=== PATIENT | male | born 1975 | race American Indian/Alaskan Native ===

== ENCOUNTER 2016-08-14 15:26 | Inpatient (IN) | payer MEDICAID ==
[2016-08-14 16:23] LABS: Basophils % (Auto) 0.7 % (0.0-1.8); Eosinophils % (Auto) 1.3 % (0.0-4.3); Hematocrit 50.6 % (35.5-45.6); Hemoglobin 16.7 gm/dl (11.8-15.2); Mean Corpuscular HGB Conc 33 % (32-34); Mean Corpuscular Hemoglobin 27 pg (28-32); Mean Corpuscular Volume 80 fl (84-94); Platelet Count 236 K/mm3 (140-440); Red Cell Distribution Width 17.3 % (13.2-15.2); White Blood Count 10.7 K/mm3 (4.5-11.0)
[2016-08-14 16:25] LABS: BUN/Creatinine Ratio 13.57; Calcium 10.7 mg/dL (8.4-10.2); Chloride 84.3 mmol/L (98-107); Potassium 5.5 mmol/L (3.6-5.0)
[2016-08-14 17:21] LABS: Bacteria,Urine 1+ /HPF (Negative); Bilirubin,Urine NEG (Negative); Blood,Urine NEG (Negative); Ketones,Urine 80 mg/dL (Negative); Leukocyte Esterase,Urine NEG (Negative); Mucus,Urine FEW /HPF; Nitrite,Urine NEG (Negative); Protein,Urine <15 mg/dL mg/dL (Negative); Urobilinogen,Urine < 2.0 mg/dL (<2.0); WBC,Urine < 1.0 /HPF (0.0-6.0)
[2016-08-14] MEDS ORDERED: D50W (25GM) IV PRN (21:44)
[2016-08-14] MEDS ORDERED: NACL 0.9% 1000 ML 1,000 ML IV ONE ×2 (21:44→21:46)
--- NOTE | 2016-08-14 21:53 | Emergency Department Report ---
ED General Adult HPI - General Chief complaint: Hyperglycemia Stated complaint: NOT FEELING WELL Time Seen by Provider: 08/14/16 21:42 Source: patient Mode of arrival: Ambulatory Limitations: No Limitations - History of Present Illness Initial comments: 41-year-old male with a past medical history hypertension and diabetes presents to the hospital complaining of feeling weak and tired 1 week. Patient also has increased thirst, increased urination, blurred vision, and weight loss. Patient takes metformin 500 twice a day and this been mostly compliant but missed a dose here and there. Patient does not monitor his glucose at home because he lost his glucometer. Denies fever, cough, or dysuria. Patient is experiencing intermittent crampy abdominal pain with nausea. Denies vomiting or diarrhea. Patient had mandibular bilateral wisdom tooth extraction approximately 2 weeks ago. He was placed on penicillin dated 07/19/2016 24 tablets. Patient did not complete the antibiotics and presents with a lot of tablets left in the bottle. PMD: [facility] - Related Data Allergies Allergy/AdvReac Type Severity Reaction Status Date / Time No Known Allergies Allergy Verified 08/14/16 21:52 ED Review of Systems ROS: Stated complaint: NOT FEELING WELL Other details as noted in HPI Comment: All other systems reviewed and negative Other: Constitutional: No fevers chills Eyes: No eye pain visual changes ENT: No ear pain or throat pain Neck: Denies pain Respiratory: Denies cough wheezing shortness of breath Cardiovascular: Denies chest pain, palpitations, syncope Endocrine: as per hpi GI: as per hpi : Denies dysuria Musculoskeletal: Denies back pain Skin: Denies rash, lesions, erythema Neurologic: Denies headache, numbness, weakness Psychiatric: Denies suicidal ideation, hallucinations ED Past Medical Hx - Past Medical History Hx Hypertension: Yes Hx Diabetes: Yes - Surgical History Additional Surgical History: LEFT KNEE SURGERY - Social History Smoking Status: Current Every Day Smoker Substance Use Type: Alcohol, Marijuana ED Physical Exam - General Limitations: No Limitations - Other Other exam information: General: No limitations, patient is alert in no acute distress Head exam: Atraumatic, normocephalic Eyes exam: Normal appearance ENT: Dry mucous membranes, no gum swelling or abscess noted at area of recent surgery at the mandibular wisdom teeth site Neck exam: Normal inspection, full range of motion, no meningismus nontender Respiratory exam: Clear to auscultation bilateral, no wheezes, rales, crackles Cardiovascular: Normal rate and rhythm, normal heart sounds Abdomen: Soft, nondistended, and nontender, with normal bowel sounds, no rebound, or guarding Extremity: Full range of motion normal inspection no deformity Back: Normal Inspection, full range of motion, no tenderness Neurologic: Alert, oriented x3, cranial nerves intact, no motor or sensory deficit Psychiatric: normal affect, normal mood Skin: Warm, dry, intact ED Course Vital Signs 08/14/16 15:46 Temperature 98.1 F Pulse Rate 106 H Respiratory 20 Rate Blood Pressure 159/96 O2 Sat by Pulse 98 Oximetry - Reevaluation(s) Reevaluation #1: 08/14/16 21:57 Insulin bolus, 2 L normal saline bolus, DKA protocol initiated ED Medical Decision Making - Lab Data Result diagrams: 08/14/16 15:52 08/14/16 15:52 Lab Results 08/14/16 08/14/16 08/14/16 Range/Units 15:37 15:52 15:52 WBC 10.7 (4.5-11.0) K/mm3 RBC 6.30 H (3.65-5.03) M/mm3 Hgb 16.7 H (11.8-15.2) gm/dl Hct 50.6 H (35.5-45.6) % MCV 80 L (84-94) fl MCH 27 L (28-32) pg MCHC 33 (32-34) % RDW 17.3 H (13.2-15.2) % Plt Count 236 (140-440) K/mm3 Lymph % (Auto) 31.9 (13.4-35.0) % [place] % (Auto) 7.5 H (0.0-7.3) % Eos % (Auto) 1.3 (0.0-4.3) % Baso % (Auto) 0.7 (0.0-1.8) % Lymph # 3.4 (1.2-5.4) K/mm3 [place] # 0.8 (0.0-0.8) K/mm3 Eos # 0.1 (0.0-0.4) K/mm3 Baso # 0.1 (0.0-0.1) K/mm3 Seg Neutrophils % 58.6 (40.0-70.0) % Seg Neutrophils # 6.3 (1.8-7.7) K/mm3 VBG pH (7.320-7.420) Sodium 128 L (137-145) mmol/L Potassium 5.5 H (3.6-5.0) mmol/L Chloride 84.3 L (98-107) mmol/L Carbon Dioxide 16 L (22-30) mmol/L Anion Gap 33 mmol/L BUN 19 (9-20) mg/dL Creatinine 1.4 (0.8-1.5) mg/dL Estimated GFR 56 ml/min BUN/Creatinine Ratio 13.57 % Glucose 567 H* (75-100) mg/dL POC Glucose 418 H (70-105) Calcium 10.7 H (8.4-10.2) mg/dL Urine Color (Yellow) Urine Turbidity (Clear) Urine pH (5.0-7.0) Ur Specific [place] (1.003-1.030) Urine Protein (Negative) mg/dL Urine Glucose (UA) (Negative) mg/dL Urine Ketones (Negative) mg/dL Urine Blood (Negative) Urine Nitrite (Negative) Urine Bilirubin (Negative) Urine Urobilinogen (<2.0) mg/dL Ur Leukocyte Esterase (Negative) Urine WBC (Auto) (0.0-6.0) /HPF Urine RBC (Auto) (0.0-6.0) /HPF U Epithel Cells (Auto) (0-13.0) /HPF Urine Bacteria (Auto) (Negative) /HPF Urine Mucus /HPF 08/14/16 08/14/16 Range/Units 15:52 16:15 WBC (4.5-11.0) K/mm3 RBC (3.65-5.03) M/mm3 Hgb (11.8-15.2) gm/dl Hct (35.5-45.6) % MCV (84-94) fl MCH (28-32) pg MCHC (32-34) % RDW (13.2-15.2) % Plt Count (140-440) K/mm3 Lymph % (Auto) (13.4-35.0) % [place] % (Auto) (0.0-7.3) % Eos % (Auto) (0.0-4.3) % Baso % (Auto) (0.0-1.8) % Lymph # (1.2-5.4) K/mm3 [place] # (0.0-0.8) K/mm3 Eos # (0.0-0.4) K/mm3 Baso # (0.0-0.1) K/mm3 Seg Neutrophils % (40.0-70.0) % Seg Neutrophils # (1.8-7.7) K/mm3 VBG pH 7.330 (7.320-7.420) Sodium (137-145) mmol/L Potassium (3.6-5.0) mmol/L Chloride (98-107) mmol/L Carbon Dioxide (22-30) mmol/L Anion Gap mmol/L BUN (9-20) mg/dL Creatinine (0.8-1.5) mg/dL Estimated GFR ml/min BUN/Creatinine Ratio % Glucose (75-100) mg/dL POC Glucose (70-105) Calcium (8.4-10.2) mg/dL Urine Color Straw (Yellow) Urine Turbidity Clear (Clear) Urine pH 5.0 (5.0-7.0) Ur Specific [place] 1.021 (1.003-1.030) Urine Protein <15 mg/dl (Negative) mg/dL Urine Glucose (UA) >=500 (Negative) mg/dL Urine Ketones 80 (Negative) mg/dL Urine Blood Neg (Negative) Urine Nitrite Neg (Negative) Urine Bilirubin Neg (Negative) Urine Urobilinogen < 2.0 (<2.0) mg/dL Ur Leukocyte Esterase Neg (Negative) Urine WBC (Auto) < 1.0 (0.0-6.0) /HPF Urine RBC (Auto) 4.0 (0.0-6.0) /HPF U Epithel Cells (Auto) < 1.0 (0-13.0) /HPF Urine Bacteria (Auto) 1+ (Negative) /HPF Urine Mucus Few /HPF - Medical Decision Making Patient requires admission to the hospital for DKA. Patient has ketones in the urine, anion gap with a low bicarbonate. Venous pH is normal. Hospitalist informed - Differential Diagnosis dka, infection, uti Critical Care Time: No Critical care attestation.: If time is entered above; I have spent that time in minutes in the direct care of this critically ill patient, excluding procedure time. ED Disposition Clinical Impression: DKA (diabetic ketoacidoses), Hyperkalemia, HTN (hypertension) Disposition: OP ADMITTED IP TO THIS HOSP Is pt being admited?: Yes Condition: Stable Time of Disposition: 21:53 (Dr saenz/hosp)
[2016-08-14 22:14] LABS: Magnesium 2.4 mg/dL (1.7-2.3); Phosphorous 5.4 mg/dL (2.5-4.5)
[2016-08-14] MEDS: NovoLIN R 100 UNITS in NACL 0.9% 99 ML IV SCH (22:38)
--- NOTE | 2016-08-14 23:01 | History and Physical Report ---
History of Present Illness Date of examination: 08/14/16 Chief complaint: Weak and tired History of present illness: Patient is a 41-year-old man with history of diabetes mellitus type 2, hypertension, dyslipidemia and tobacco dependency presents with progressively worse moderate constant generalized weakness, polydipsia, polyuria, polyphagia, weight loss, blurred vision and uncontrolled blood sugars over a couple weeks associated with generalized abdominal pain with nausea without vomiting. Patient was started on metformin recently. Patient had upper wisdom teeth removed about 2 weeks ago and was given antibiotics but did not complete. Primary care provider is at [facility]. Past medical history: As HPI Past surgical history: Left knee surgery Social history: Tobacco dependency, no alcohol or drugs Family history: Mother had diabetes and hypertension ROS: as HPI and all other ROS reviewed and negative. Medications and Allergies Allergies Allergy/AdvReac Type Severity Reaction Status Date / Time No Known Allergies Allergy Verified 08/14/16 21:52 Home Medications Medication Instructions Recorded Confirmed Last Taken Type Clarithromycin 500 mg PO Q12HR 08/14/16 08/14/16 Unknown History Lisinopril/Hydrochlorothiazide 20 mg PO QDAY 08/14/16 08/14/16 Unknown History Metformin HCl [Glucophage] 500 mg PO Q12HR 08/14/16 08/14/16 Unknown History Simvastatin 20 mg PO QDAY 08/14/16 08/14/16 Unknown History Active Meds: Active Medications Dextrose (D50w (25gm)) 0 ml IV PRN PRN PRN Reason: Hypoglycemia Heparin Sodium (Porcine) (Heparin) 5,000 unit SUB-Q Q12HR EARLINE Insulin Human Regular 100 (units/ Sodium Chloride) 100 mls @ 1 mls/hr IV TITR EARLINE; 1 UNITS/HR PRN Reason: Protocol Last Admin: 08/14/16 22:38 Dose: 7 units/hr, 7 mls/hr Potassium Chloride/Dextrose/Sod Cl (D5w/0.45% Nacl/Kcl 20 Meq) 20 meq in 1,000 mls @ 125 mls/hr IV DIRECT EARLINE Miscellaneous Medication (Lisinopril/Hydrochlorothiazide) 20 mg PO QDAY EARLINE Miscellaneous Medication (Simvastatin) 20 mg PO QDAY EARLINE Exam - Physical Exam Narrative exam: GEN: WDWN, NAD, AWAKE, ALERT, ORIENTATED 3 HEENT: NCAT, PERRL, EOMI, OP CLEAR NECK: SUPPLE, NO THYROMEGALY, NO JVD, NO LAD CVS: Regular tachycardia, NORMAL S1S2 LUNGS/CHEST: CTA B, NORMAL CHEST EXPANSION B, GOOD AIR ENTRY B ABD: SOFT NTND, GBS, NO REBOUND OR GUARDING EXT/SKIN: NO SIGNIFICANT EDEMA OR RASH, mucous membranes dry, capillary refill approximately 2 seconds MSK: FROM X 4 EXTREMITIES NEURO: CN 2-12 GROSSLY INTACT, NO FOCAL DEFICITS PSY: CALM - Constitutional Vitals: Temp Pulse Resp BP Pulse Ox 98.1 F 106 H 20 159/96 98 08/14/16 15:46 08/14/16 15:46 08/14/16 15:46 08/14/16 15:46 08/14/16 15:46 Results - Labs CBC & Chem 7: 08/14/16 15:52 08/14/16 15:52 Labs: Abnormal lab results 08/14/16 08/14/16 08/14/16 Range/Units 15:37 15:52 15:52 RBC 6.30 H (3.65-5.03) M/mm3 Hgb 16.7 H (11.8-15.2) gm/dl Hct 50.6 H (35.5-45.6) % MCV 80 L (84-94) fl MCH 27 L (28-32) pg RDW 17.3 H (13.2-15.2) % [place] % (Auto) 7.5 H (0.0-7.3) % Sodium 128 L (137-145) mmol/L Potassium 5.5 H (3.6-5.0) mmol/L Chloride 84.3 L (98-107) mmol/L Carbon Dioxide 16 L (22-30) mmol/L Glucose 567 H* (75-100) mg/dL POC Glucose 418 H (70-105) Calcium 10.7 H (8.4-10.2) mg/dL Phosphorus (2.5-4.5) mg/dL Magnesium (1.7-2.3) mg/dL 08/14/16 08/14/16 Range/Units 15:52 22:52 RBC (3.65-5.03) M/mm3 Hgb (11.8-15.2) gm/dl Hct (35.5-45.6) % MCV (84-94) fl MCH (28-32) pg RDW (13.2-15.2) % [place] % (Auto) (0.0-7.3) % Sodium (137-145) mmol/L Potassium (3.6-5.0) mmol/L Chloride (98-107) mmol/L Carbon Dioxide (22-30) mmol/L Glucose (75-100) mg/dL POC Glucose 383 H (70-105) Calcium (8.4-10.2) mg/dL Phosphorus 5.40 H (2.5-4.5) mg/dL Magnesium 2.40 H (1.7-2.3) mg/dL Assessment and Plan Patient is a 41-year-old man with history of diabetes mellitus type 2, hypertension, dyslipidemia and tobacco dependency presents with progressively worse moderate constant generalized weakness, polydipsia, polyuria, polyphagia, weight loss, blurred vision and uncontrolled blood sugars over a couple weeks associated with generalized abdominal pain with nausea without vomiting. Patient was started on metformin recently. Patient had upper wisdom teeth removed about 2 weeks ago and was given antibiotics but did not complete. Primary care provider is at [facility]. -DKA: DKA protocol admitted to ICU on insulin drip, consult trumpet player -Newly diagnosed diabetes mellitus placed on metformin, patient possibly was a type I at diagnosis or late stage type II -Hyponatremia related to uncontrolled hyperglycemia: treat the dm -Hyperkalemia and hypercalcemia, patient is dehydrated: Treat with IV fluids -Acute kidney injury suspected due to vasomotor nephropathy: Treated with IV fluids and monitor closely -Tobacco dependency: Counseling on stopping -DVT prophylaxis: Subcutaneous heparin Full code
[2016-08-14] MEDS ORDERED: REGLAN IV PRN (23:06)
[2016-08-14] MEDS ORDERED: TYLENOL PO PRN (23:06)
[2016-08-15 00:17] LABS: Magnesium 2.2 mg/dL (1.7-2.3); Phosphorous 4.6 mg/dL (2.5-4.5)
[2016-08-15] MEDS: D5W/0.45% NACL/KCL 20 MEQ 20 MEQ/1,000 ML BAG IV SCH ×3 (02:11→16:32)
[2016-08-15 04:46] LABS: Anion Gap 26 mmol/L; Blood Urea Nitrogen 15 mg/dL (9-20); Calcium 8.8 mg/dL (8.4-10.2); Carbon Dioxide 17 mmol/L (22-30); Chloride 94.9 mmol/L (98-107); Glucose 257 mg/dL (75-100); Sodium 134 mmol/L (137-145)
[2016-08-15 04:47] LABS: Anion Gap 26 mmol/L; Blood Urea Nitrogen 15 mg/dL (9-20); Calcium 8.8 mg/dL (8.4-10.2); Carbon Dioxide 17 mmol/L (22-30); Chloride 95.3 mmol/L (98-107); Glucose 256 mg/dL (75-100); Potassium 3.7 mmol/L (3.6-5.0); Sodium 135 mmol/L (137-145)
[2016-08-15 04:50] LABS: Anion Gap 28 mmol/L; BUN/Creatinine Ratio 11.53; Blood Urea Nitrogen 15 mg/dL (9-20); Calcium 8.9 mg/dL (8.4-10.2); Carbon Dioxide 16 mmol/L (22-30); Chloride 96.5 mmol/L (98-107); Glucose 261 mg/dL (75-100); Potassium 3.9 mmol/L (3.6-5.0); Sodium 137 mmol/L (137-145)
[2016-08-15 04:52] LABS: Anion Gap 27 mmol/L; BUN/Creatinine Ratio 11.53; Blood Urea Nitrogen 15 mg/dL (9-20); Calcium 8.8 mg/dL (8.4-10.2); Carbon Dioxide 17 mmol/L (22-30); Chloride 94.9 mmol/L (98-107); Glucose 254 mg/dL (75-100); Potassium 3.8 mmol/L (3.6-5.0); Sodium 135 mmol/L (137-145)
[2016-08-15 04:57] LABS: Potassium 3.7 mmol/L (3.6-5.0)
--- NOTE | 2016-08-15 08:10 | Progress Note ---
Assessment and Plan Assessment and plan: --Diabetic ketoacidosis Probably secondary to noncompliance, HbA1c 14.9 Continue IV insulin drip per protocol, vigorous IV hydration, closely monitor electrolytes and correct as needed Nothing by mouth status, we'll start clear liquids once anion gap is closed Diabetic education, nutrition consult --Hypertension Moderate control, continue current antihypertensive medications --Dyslipidemia; continue lipid-lowering medications --Obesity Counseling done patient advised dietary modification and exercise as tolerated and weight reduction When medically stable, verbalized understanding --Ongoing tobacco use; Smoking cessation counseling done, advised to quit tobacco use This and consequences and complications of ongoing tobacco use discussed with the patient Advised nicotine patch, -- DVT prophylaxis with heparin There closely monitor the patient and adjust the management as needed Patient's condition treatment plan discussed in detail with the patient as well as his nurse Critical care time 32 minutes History Interval history: Patient seen and evaluated in his room in ICU medical records reviewed Admitted with diabetic ketoacidosis on insulin drip Patient's anion gap remains high, also an acidosis Blood sugars are reasonable levels on insulin drip Alert awake oriented 3 not in acute distress, mild dehydration Patient requests food Hospitalist Physical - Constitutional Vitals: Temp Pulse Resp BP Pulse Ox 98.6 F 78 13 106/79 97 08/15/16 08:00 08/15/16 08:00 08/15/16 08:00 08/15/16 08:00 08/15/16 08:00 General appearance: Present: mild distress, well-nourished, obese - EENT Eyes: Present: PERRL, EOM intact - Neck Neck: Present: supple, normal ROM - Respiratory Respiratory effort: normal Respiratory: bilateral: diminished, negative: rales, rhonchi, wheezing - Cardiovascular Rhythm: regular Heart Sounds: Present: S1 & S2 - Extremities Extremities: no ischemia, pulses intact, pulses symmetrical Peripheral Pulses: within normal limits - Abdominal General gastrointestinal: soft, non-tender, non-distended, normal bowel sounds - Integumentary Integumentary: Present: clear, warm - Psychiatric Psychiatric: appropriate mood/affect, cooperative - Neurologic Neurologic: CNII-XII intact, moves all extremities Results - Labs CBC & Chem 7: 08/14/16 15:52 08/15/16 08:20 Labs: Laboratory Last Values WBC 10.7 K/mm3 (4.5-11.0) 08/14/16 15:52 RBC 6.30 M/mm3 (3.65-5.03) H 08/14/16 15:52 Hgb 16.7 gm/dl (11.8-15.2) H 08/14/16 15:52 Hct 50.6 % (35.5-45.6) H 08/14/16 15:52 MCV 80 fl (84-94) L 08/14/16 15:52 MCH 27 pg (28-32) L 08/14/16 15:52 MCHC 33 % (32-34) 08/14/16 15:52 RDW 17.3 % (13.2-15.2) H 08/14/16 15:52 Plt Count 236 K/mm3 (140-440) 08/14/16 15:52 Lymph % (Auto) 31.9 % (13.4-35.0) 08/14/16 15:52 [place] % (Auto) 7.5 % (0.0-7.3) H 08/14/16 15:52 Eos % (Auto) 1.3 % (0.0-4.3) 08/14/16 15:52 Baso % (Auto) 0.7 % (0.0-1.8) 08/14/16 15:52 Lymph # 3.4 K/mm3 (1.2-5.4) 08/14/16 15:52 [place] # 0.8 K/mm3 (0.0-0.8) 08/14/16 15:52 Eos # 0.1 K/mm3 (0.0-0.4) 08/14/16 15:52 Baso # 0.1 K/mm3 (0.0-0.1) 08/14/16 15:52 Seg Neutrophils % 58.6 % (40.0-70.0) 08/14/16 15:52 Seg Neutrophils # 6.3 K/mm3 (1.8-7.7) 08/14/16 15:52 VBG pH 7.330 (7.320-7.420) 08/14/16 15:52 Sodium 135 mmol/L (137-145) L 08/15/16 03:49 Potassium 3.8 mmol/L (3.6-5.0) 08/15/16 03:49 Chloride 94.9 mmol/L (98-107) L 08/15/16 03:49 Carbon Dioxide 17 mmol/L (22-30) L 08/15/16 03:49 Anion Gap 27 mmol/L 08/15/16 03:49 BUN 15 mg/dL (9-20) 08/15/16 03:49 Creatinine 1.3 mg/dL (0.8-1.5) 08/15/16 03:49 Estimated GFR > 60 ml/min 08/15/16 03:49 BUN/Creatinine Ratio 11.53 % 08/15/16 03:49 Glucose 254 mg/dL (75-100) H 08/15/16 03:49 POC Glucose 195 (70-105) H 08/15/16 06:20 Hemoglobin A1c 14.9 % (4-6) H 08/14/16 23:40 Calcium 8.8 mg/dL (8.4-10.2) 08/15/16 03:49 Phosphorus 4.60 mg/dL (2.5-4.5) H 08/14/16 23:40 Magnesium 1.90 mg/dL (1.7-2.3) 08/15/16 03:49 Urine Color Straw (Yellow) 08/14/16 16:15 Urine Turbidity Clear (Clear) 08/14/16 16:15 Urine pH 5.0 (5.0-7.0) 08/14/16 16:15 Ur Specific [place] 1.021 (1.003-1.030) 08/14/16 16:15 Urine Protein <15 mg/dl mg/dL (Negative) 08/14/16 16:15 Urine Glucose (UA) >=500 mg/dL (Negative) 08/14/16 16:15 Urine Ketones 80 mg/dL (Negative) 08/14/16 16:15 Urine Blood Neg (Negative) 08/14/16 16:15 Urine Nitrite Neg (Negative) 08/14/16 16:15 Urine Bilirubin Neg (Negative) 08/14/16 16:15 Urine Urobilinogen < 2.0 mg/dL (<2.0) 08/14/16 16:15 Ur Leukocyte Esterase Neg (Negative) 08/14/16 16:15 Urine WBC (Auto) < 1.0 /HPF (0.0-6.0) 08/14/16 16:15 Urine RBC (Auto) 4.0 /HPF (0.0-6.0) 08/14/16 16:15 U Epithel Cells (Auto) < 1.0 /HPF (0-13.0) 08/14/16 16:15 Urine Bacteria (Auto) 1+ /HPF (Negative) 08/14/16 16:15 Urine Mucus Few /HPF 08/14/16 16:15
[2016-08-15 08:58] LABS: Anion Gap 24 mmol/L; BUN/Creatinine Ratio 10.83; Blood Urea Nitrogen 13 mg/dL (9-20); Calcium 8.9 mg/dL (8.4-10.2); Carbon Dioxide 22 mmol/L (22-30); Chloride 99.5 mmol/L (98-107); Glucose 158 mg/dL (75-100); Potassium 4.2 mmol/L (3.6-5.0); Sodium 141 mmol/L (137-145)
[2016-08-15] MEDS: ZESTRIL PO SCH (09:44)
[2016-08-15] MEDS: HCTZ PO SCH (09:44)
[2016-08-15] MEDS: PROTONIX PO SCH (09:45)
[2016-08-15] MEDS ORDERED: NON-FORMULARY (Simvastatin 20 MG) PO SCH (10:00)
[2016-08-15] MEDS ORDERED: NON-FORMULARY (Lisinopril/Hydrochlorothiazide 20 MG) PO SCH (10:00)
--- NOTE | 2016-08-15 12:15 | Consultation ---
History of Present Illness - Reason for Consult Consult date: 08/15/16 DKA/Insulin Drip Requesting physician: NICHOLAS OLIVAREZ - History of Present Illness 41 y/o male admitted with DKA Past History Past Medical History: diabetes, hypertension, hyperlipidemia Past Surgical History: No surgical history Social history: no significant social history Family history: no significant family history Medications and Allergies Allergies Allergy/AdvReac Type Severity Reaction Status Date / Time No Known Allergies Allergy Verified 08/14/16 21:52 Home Medications Medication Instructions Recorded Confirmed Last Taken Type Clarithromycin 500 mg PO Q12HR 08/14/16 08/14/16 Unknown History Lisinopril/Hydrochlorothiazide 20 mg PO QDAY 08/14/16 08/14/16 Unknown History Metformin HCl [Glucophage] 500 mg PO Q12HR 08/14/16 08/14/16 Unknown History Simvastatin 20 mg PO QDAY 08/14/16 08/14/16 Unknown History Active Meds: Active Medications Acetaminophen (Tylenol) 650 mg PO Q6H PRN PRN Reason: Non Cardiac Pain or Temp>100.5 Dextrose (D50w (25gm)) 0 ml IV PRN PRN PRN Reason: Hypoglycemia Heparin Sodium (Porcine) (Heparin) 5,000 unit SUB-Q Q12HR EARLINE Hydrochlorothiazide (Hctz) 12.5 mg PO QDAY [facility] Last Admin: 08/15/16 09:44 Dose: 12.5 mg Insulin Human Regular 100 (units/ Sodium Chloride) 100 mls @ 1 mls/hr IV TITR EARLINE; 1 UNITS/HR PRN Reason: Protocol Last Titration: 08/15/16 10:01 Dose: 4 units/hr, 4 mls/hr Potassium Chloride/Dextrose/Sod Cl (D5w/0.45% Nacl/Kcl 20 Meq) 20 meq in 1,000 mls @ 125 mls/hr IV DIRECT EARLINE Last Admin: 08/15/16 09:45 Dose: 125 mls/hr Lisinopril (Zestril) 20 mg PO QDAY EARLINE Last Admin: 08/15/16 09:44 Dose: 20 mg Metoclopramide HCl (Reglan) 10 mg IV Q8H PRN PRN Reason: Nausea And Vomiting Pantoprazole Sodium (Protonix) 40 mg PO QDAY EARLINE Last Admin: 08/15/16 09:45 Dose: 40 mg Simvastatin (Zocor) 20 mg PO QHS EARLINE Review of Systems All systems: negative Exam - Constitutional Vitals: Temp Pulse Resp BP Pulse Ox 98.6 F 81 12 113/66 99 08/15/16 08:00 08/15/16 09:50 08/15/16 09:50 08/15/16 09:50 08/15/16 09:50 General appearance: Present: no acute distress, other (upset about NPO status) - EENT Eyes: Present: PERRL, EOM intact ENT: hearing intact, other (dry lips) - Neck Neck: Present: supple, normal ROM, other (large in circumference) - Respiratory Respiratory effort: normal Respiratory: bilateral: CTA - Cardiovascular Rhythm: regular Heart Sounds: Present: S1 & S2 - Extremities Extremities: no ischemia Results - Labs CBC & Chem 7: 08/14/16 15:52 08/15/16 08:20 Labs: Abnormal lab results 08/14/16 08/14/16 08/14/16 Range/Units 23:40 23:40 23:40 Sodium (137-145) mmol/L Chloride (98-107) mmol/L Carbon Dioxide (22-30) mmol/L Glucose (75-100) mg/dL POC Glucose 358 H (70-105) Hemoglobin A1c 14.9 H (4-6) % Phosphorus 4.60 H (2.5-4.5) mg/dL 08/15/16 08/15/16 08/15/16 Range/Units 00:40 01:09 02:05 Sodium (137-145) mmol/L Chloride (98-107) mmol/L Carbon Dioxide (22-30) mmol/L Glucose (75-100) mg/dL POC Glucose 293 H 313 H 230 H (70-105) Hemoglobin A1c (4-6) % Phosphorus (2.5-4.5) mg/dL 08/15/16 08/15/16 08/15/16 Range/Units 03:12 03:49 03:49 Sodium 134 L (137-145) mmol/L Chloride 94.9 L 96.5 L (98-107) mmol/L Carbon Dioxide 17 L 16 L (22-30) mmol/L Glucose 257 H 261 H (75-100) mg/dL POC Glucose 235 H (70-105) Hemoglobin A1c (4-6) % Phosphorus (2.5-4.5) mg/dL 08/15/16 08/15/16 08/15/16 Range/Units 03:49 03:49 03:58 Sodium 135 L 135 L (137-145) mmol/L Chloride 95.3 L 94.9 L (98-107) mmol/L Carbon Dioxide 17 L 17 L (22-30) mmol/L Glucose 256 H 254 H (75-100) mg/dL POC Glucose 235 H (70-105) Hemoglobin A1c (4-6) % Phosphorus (2.5-4.5) mg/dL 08/15/16 08/15/16 08/15/16 Range/Units 05:13 06:20 08:20 Sodium (137-145) mmol/L Chloride (98-107) mmol/L Carbon Dioxide (22-30) mmol/L Glucose 158 H (75-100) mg/dL POC Glucose 205 H 195 H (70-105) Hemoglobin A1c (4-6) % Phosphorus (2.5-4.5) mg/dL Assessment and Plan 41 y/o male with DKA 1. Patient remains on insulin drip, need to continue NPO status 2. Must stay on insulin drip until anion gap closes 3. Patient was not on insulin at home. Most likely will need insulin therapy at discharge 4. Once GAP closes, give long acting insulin and then feed patient. CCT 31 minutes.
[2016-08-15 13:56] LABS: Blood Urea Nitrogen 12 mg/dL (9-20); Calcium 8.6 mg/dL (8.4-10.2); Carbon Dioxide 18 mmol/L (22-30); Chloride 95.9 mmol/L (98-107); Glucose 215 mg/dL (75-100); Sodium 133 mmol/L (137-145)
[2016-08-15 14:12] LABS: Anion Gap 24 mmol/L; Potassium 4.5 mmol/L (3.6-5.0)
[2016-08-15] MEDS: NovoLIN R 100 UNITS in NACL 0.9% 99 ML IV SCH (15:00)
[2016-08-15] MEDS: HEPARIN SUB-Q SCH (21:52)
[2016-08-15] MEDS: ZOCOR PO SCH (21:54)
[2016-08-15 22:11] LABS: Anion Gap 21 mmol/L; Blood Urea Nitrogen 8 mg/dL (9-20); Calcium 9.1 mg/dL (8.4-10.2); Carbon Dioxide 22 mmol/L (22-30); Chloride 96.3 mmol/L (98-107); Glucose 180 mg/dL (75-100); Potassium 3.9 mmol/L (3.6-5.0); Sodium 135 mmol/L (137-145)
[2016-08-16] MEDS: D5W/0.45% NACL/KCL 20 MEQ 20 MEQ/1,000 ML BAG IV SCH
[2016-08-16] MEDS: NovoLIN R 100 UNITS in NACL 0.9% 99 ML IV SCH (04:59)
[2016-08-16 06:26] LABS: Anion Gap 17 mmol/L; BUN/Creatinine Ratio 7.77; Blood Urea Nitrogen 7 mg/dL (9-20); Calcium 8.8 mg/dL (8.4-10.2); Carbon Dioxide 22 mmol/L (22-30); Chloride 95.9 mmol/L (98-107); Glucose 137 mg/dL (75-100); Potassium 3.6 mmol/L (3.6-5.0); Sodium 131 mmol/L (137-145)
--- NOTE | 2016-08-16 07:57 | Progress Note ---
Assessment and Plan Assessment and plan: --Diabetic ketoacidosis Blood sugars are reasonable levels, anion gap closed, acidosis corrected Hemoglobin A1c 14.9, DC insulin drip Start 70/30 long-acting insulin, Accu-Chek before meals and at bedtime, sliding scale coverage Resume ADA diet, change IV fluids to normal saline Closely monitor blood sugars and if reasonable patient can be transferred out of ICU today Diabetic education prior to discharge --Hypertension Moderate control, continue current antihypertensive medications --Dyslipidemia; continue lipid-lowering medications --Obesity Counseling done patient advised dietary modification and exercise as tolerated and weight reduction When medically stable, verbalized understanding --Ongoing tobacco use; Smoking cessation counseling done, advised to quit tobacco use Continue nicotine patch -- DVT prophylaxis with heparin There closely monitor the patient and adjust the management as needed Patient's condition treatment plan discussed in detail with the patient as well as his nurse Transfer to medical floor Possible discharge in 1-2 days if stable Patient's condition treatment plan discussed in detail with the patient and his at the bedside and his nurse I also discussed with the trimming caser History Interval history: Patient seen and evaluated in IC this morning medical records reviewed Patient is admitted with diabetic ketoacidosis on insulin drip Sugars are reasonable control, anion gap closed, acidosis resolved Patient feels hungry and requests for food No nausea vomiting Alert awake oriented 3 not in acute distress Vital signs reviewed stable Hospitalist Physical - Constitutional Vitals: Temp Pulse Resp BP Pulse Ox 98.1 F 79 14 120/76 97 08/16/16 04:00 08/16/16 07:20 08/16/16 07:20 08/16/16 07:20 08/16/16 07:20 General appearance: Present: no acute distress, well-nourished, other (upset about NPO status) - EENT Eyes: Present: PERRL, EOM intact - Neck Neck: Present: supple, normal ROM - Respiratory Respiratory effort: normal Respiratory: bilateral: diminished, negative: rales, rhonchi, wheezing - Cardiovascular Rhythm: regular Heart Sounds: Present: S1 & S2 - Extremities Extremities: no ischemia, pulses intact, pulses symmetrical, normal temperature Peripheral Pulses: within normal limits - Abdominal General gastrointestinal: soft, non-tender, non-distended - Integumentary Integumentary: Present: clear, warm - Psychiatric Psychiatric: appropriate mood/affect, cooperative - Neurologic Neurologic: CNII-XII intact, moves all extremities Results - Labs CBC & Chem 7: 08/14/16 15:52 08/16/16 05:58 Labs: Laboratory Last Values WBC 10.7 K/mm3 (4.5-11.0) 08/14/16 15:52 RBC 6.30 M/mm3 (3.65-5.03) H 08/14/16 15:52 Hgb 16.7 gm/dl (11.8-15.2) H 08/14/16 15:52 Hct 50.6 % (35.5-45.6) H 08/14/16 15:52 MCV 80 fl (84-94) L 08/14/16 15:52 MCH 27 pg (28-32) L 08/14/16 15:52 MCHC 33 % (32-34) 08/14/16 15:52 RDW 17.3 % (13.2-15.2) H 08/14/16 15:52 Plt Count 236 K/mm3 (140-440) 08/14/16 15:52 Lymph % (Auto) 31.9 % (13.4-35.0) 08/14/16 15:52 [place] % (Auto) 7.5 % (0.0-7.3) H 08/14/16 15:52 Eos % (Auto) 1.3 % (0.0-4.3) 08/14/16 15:52 Baso % (Auto) 0.7 % (0.0-1.8) 08/14/16 15:52 Lymph # 3.4 K/mm3 (1.2-5.4) 08/14/16 15:52 [place] # 0.8 K/mm3 (0.0-0.8) 08/14/16 15:52 Eos # 0.1 K/mm3 (0.0-0.4) 08/14/16 15:52 Baso # 0.1 K/mm3 (0.0-0.1) 08/14/16 15:52 Seg Neutrophils % 58.6 % (40.0-70.0) 08/14/16 15:52 Seg Neutrophils # 6.3 K/mm3 (1.8-7.7) 08/14/16 15:52 VBG pH 7.330 (7.320-7.420) 08/14/16 15:52 Sodium 131 mmol/L (137-145) L 08/16/16 05:58 Potassium 3.6 mmol/L (3.6-5.0) 08/16/16 05:58 Chloride 95.9 mmol/L (98-107) L 08/16/16 05:58 Carbon Dioxide 22 mmol/L (22-30) 08/16/16 05:58 Anion Gap 17 mmol/L 08/16/16 05:58 BUN 7 mg/dL (9-20) L 08/16/16 05:58 Creatinine 0.9 mg/dL (0.8-1.5) 08/16/16 05:58 Estimated GFR > 60 ml/min 08/16/16 05:58 BUN/Creatinine Ratio 7.77 % 08/16/16 05:58 Glucose 137 mg/dL (75-100) H 08/16/16 05:58 POC Glucose 138 (70-105) H 08/16/16 06:06 Hemoglobin A1c 14.9 % (4-6) H 08/14/16 23:40 Calcium 8.8 mg/dL (8.4-10.2) 08/16/16 05:58 Phosphorus 4.60 mg/dL (2.5-4.5) H 08/14/16 23:40 Magnesium 1.90 mg/dL (1.7-2.3) 08/15/16 03:49 Urine Color Straw (Yellow) 08/14/16 16:15 Urine Turbidity Clear (Clear) 08/14/16 16:15 Urine pH 5.0 (5.0-7.0) 08/14/16 16:15 Ur Specific [place] 1.021 (1.003-1.030) 08/14/16 16:15 Urine Protein <15 mg/dl mg/dL (Negative) 08/14/16 16:15 Urine Glucose (UA) >=500 mg/dL (Negative) 08/14/16 16:15 Urine Ketones 80 mg/dL (Negative) 08/14/16 16:15 Urine Blood Neg (Negative) 08/14/16 16:15 Urine Nitrite Neg (Negative) 08/14/16 16:15 Urine Bilirubin Neg (Negative) 08/14/16 16:15 Urine Urobilinogen < 2.0 mg/dL (<2.0) 08/14/16 16:15 Ur Leukocyte Esterase Neg (Negative) 08/14/16 16:15 Urine WBC (Auto) < 1.0 /HPF (0.0-6.0) 08/14/16 16:15 Urine RBC (Auto) 4.0 /HPF (0.0-6.0) 08/14/16 16:15 U Epithel Cells (Auto) < 1.0 /HPF (0-13.0) 08/14/16 16:15 Urine Bacteria (Auto) 1+ /HPF (Negative) 08/14/16 16:15 Urine Mucus Few /HPF 08/14/16 16:15
[2016-08-16] MEDS: NACL 0.9% 1000 ML 1,000 ML IV SCH ×2 (09:00→21:08)
--- NOTE | 2016-08-16 09:32 | Progress Note ---
Assessment and Plan DKA Rec: Continue hydration monitor BS and Fahad salazar Move to long acting insulin of , ketones, AG remain normal Probably OK to transfer out of ICU, if he continues to improved during the day. Will monitor and sign off once transferred CCT 31 min Subjective Date of service: 08/16/16 Principal diagnosis: DKA Interval history: Feels fine.No vomiting or chest pain.Stating feedings Objective Vital Signs - 12hr 08/15/16 08/15/16 08/15/16 21:40 21:50 22:00 Temperature Pulse Rate 97 H 95 H 94 H Pulse Rate [ From Monitor] Respiratory 10 L 16 13 Rate Blood Pressure 151/129 151/129 144/102 O2 Sat by Pulse 97 96 95 Oximetry 08/15/16 08/15/16 08/15/16 22:10 22:20 22:30 Temperature Pulse Rate 93 H 90 87 Pulse Rate [ From Monitor] Respiratory 14 12 12 Rate Blood Pressure 144/102 144/102 144/102 O2 Sat by Pulse 95 98 98 Oximetry 08/15/16 08/15/16 08/15/16 22:40 22:50 23:00 Temperature Pulse Rate 88 83 91 H Pulse Rate [ From Monitor] Respiratory 13 11 L 9 L Rate Blood Pressure 144/102 146/90 163/103 O2 Sat by Pulse 98 98 99 Oximetry 08/15/16 08/15/16 08/15/16 23:10 23:20 23:30 Temperature Pulse Rate 85 88 94 H Pulse Rate [ From Monitor] Respiratory 12 11 L 17 Rate Blood Pressure 163/103 163/103 163/103 O2 Sat by Pulse 98 97 96 Oximetry 08/15/16 08/15/16 08/16/16 23:40 23:50 00:00 Temperature 98.1 F Pulse Rate 82 86 89 Pulse Rate [ From Monitor] Respiratory 10 L 13 10 L Rate Blood Pressure 163/103 163/96 155/96 O2 Sat by Pulse 96 97 99 Oximetry 08/16/16 08/16/16 08/16/16 00:10 00:20 00:30 Temperature Pulse Rate 92 H 89 86 Pulse Rate [ From Monitor] Respiratory 13 11 L 14 Rate Blood Pressure 155/96 155/96 155/96 O2 Sat by Pulse 97 97 96 Oximetry 08/16/16 08/16/16 08/16/16 00:40 00:50 01:00 Temperature Pulse Rate 100 H 86 84 Pulse Rate [ From Monitor] Respiratory 10 L 15 17 Rate Blood Pressure 155/96 155/96 131/82 O2 Sat by Pulse 98 97 96 Oximetry 08/16/16 08/16/16 08/16/16 01:10 01:20 01:30 Temperature Pulse Rate 83 87 82 Pulse Rate [ From Monitor] Respiratory 11 L 13 14 Rate Blood Pressure 131/82 131/82 131/82 O2 Sat by Pulse 98 98 97 Oximetry 08/16/16 08/16/16 08/16/16 01:40 01:50 02:00 Temperature Pulse Rate 86 87 82 Pulse Rate [ From Monitor] Respiratory 13 12 12 Rate Blood Pressure 131/82 131/82 123/65 O2 Sat by Pulse 98 97 100 Oximetry 08/16/16 08/16/16 08/16/16 02:10 02:20 02:30 Temperature Pulse Rate 88 91 H 92 H Pulse Rate [ From Monitor] Respiratory 12 12 13 Rate Blood Pressure 123/65 123/65 123/65 O2 Sat by Pulse 96 96 95 Oximetry 08/16/16 08/16/16 08/16/16 02:40 02:50 03:00 Temperature Pulse Rate 97 H 88 84 Pulse Rate [ From Monitor] Respiratory 13 13 8 L Rate Blood Pressure 123/65 123/65 107/68 O2 Sat by Pulse 97 95 97 Oximetry 08/16/16 08/16/16 08/16/16 03:10 03:20 03:30 Temperature Pulse Rate 86 88 88 Pulse Rate [ From Monitor] Respiratory 12 11 L 11 L Rate Blood Pressure 107/68 107/68 107/68 O2 Sat by Pulse 96 97 98 Oximetry 08/16/16 08/16/16 08/16/16 03:40 03:50 04:00 Temperature 98.1 F Pulse Rate 87 90 84 Pulse Rate [ From Monitor] Respiratory 12 12 13 Rate Blood Pressure 107/68 107/68 86/46 O2 Sat by Pulse 95 95 95 Oximetry 08/16/16 08/16/16 08/16/16 04:10 04:20 04:30 Temperature Pulse Rate 79 84 83 Pulse Rate [ From Monitor] Respiratory 11 L 13 13 Rate Blood Pressure 86/46 86/46 86/46 O2 Sat by Pulse 90 93 93 Oximetry 08/16/16 08/16/16 08/16/16 04:40 04:50 05:00 Temperature Pulse Rate 82 89 83 Pulse Rate [ From Monitor] Respiratory 12 11 L 10 L Rate Blood Pressure 86/46 86/46 105/67 O2 Sat by Pulse 94 97 92 Oximetry 08/16/16 08/16/16 08/16/16 05:10 05:20 05:30 Temperature Pulse Rate 85 81 92 H Pulse Rate [ From Monitor] Respiratory 12 11 L 10 L Rate Blood Pressure 105/67 105/67 105/67 O2 Sat by Pulse 96 98 96 Oximetry 08/16/16 08/16/16 08/16/16 05:40 05:50 06:00 Temperature Pulse Rate 87 87 83 Pulse Rate [ From Monitor] Respiratory Rate Blood Pressure 105/67 105/67 127/94 O2 Sat by Pulse 98 97 98 Oximetry 08/16/16 08/16/16 08/16/16 06:10 06:20 06:30 Temperature Pulse Rate 99 H 80 84 Pulse Rate [ From Monitor] Respiratory Rate Blood Pressure 127/94 127/94 127/94 O2 Sat by Pulse 99 98 97 Oximetry 08/16/16 08/16/16 08/16/16 06:40 06:50 07:00 Temperature Pulse Rate 81 78 79 Pulse Rate [ From Monitor] Respiratory 12 Rate Blood Pressure 127/94 127/94 127/94 O2 Sat by Pulse 96 98 95 Oximetry 08/16/16 08/16/16 08/16/16 07:10 07:20 07:30 Temperature Pulse Rate 83 79 83 Pulse Rate [ From Monitor] Respiratory 16 14 9 L Rate Blood Pressure 120/76 120/76 120/76 O2 Sat by Pulse 98 97 96 Oximetry 08/16/16 08/16/16 08/16/16 07:40 07:50 08:00 Temperature 98.4 F Pulse Rate 80 86 81 Pulse Rate [ 86 From Monitor] Respiratory 14 12 10 L Rate Blood Pressure 120/76 120/76 120/67 O2 Sat by Pulse 97 97 94 Oximetry 08/16/16 08/16/16 08/16/16 08:10 08:20 08:30 Temperature Pulse Rate 80 84 105 H Pulse Rate [ From Monitor] Respiratory 9 L 12 9 L Rate Blood Pressure 120/67 120/67 120/67 O2 Sat by Pulse 97 98 98 Oximetry 08/16/16 08/16/16 08:40 08:50 Temperature Pulse Rate 85 88 Pulse Rate [ From Monitor] Respiratory 15 9 L Rate Blood Pressure 120/67 120/67 O2 Sat by Pulse 97 99 Oximetry Constitutional: alert Eyes: non-icteric ENT: oropharynx moist Neck: supple Effort: no acute distress Ascultation: Bilateral: clear Cardiovascular: regular rate and rhythm Gastrointestinal: normoactive bowel sounds, non-distended Extremities: no cyanosis, no cyanosis, no cyanosis Neurologic: normal mental status, non-focal exam CBC and BMP: 08/14/16 15:52 08/17/16 04:45 Abnormal lab findings: Abnormal Labs 08/14/16 08/14/16 08/14/16 23:40 23:40 23:40 Sodium Chloride Carbon Dioxide BUN Glucose POC Glucose 358 H Hemoglobin A1c 14.9 H Phosphorus 4.60 H 08/15/16 08/15/16 08/15/16 00:40 01:09 02:05 Sodium Chloride Carbon Dioxide BUN Glucose POC Glucose 293 H 313 H 230 H Hemoglobin A1c Phosphorus 08/15/16 08/15/16 08/15/16 03:12 03:49 03:49 Sodium 134 L Chloride 94.9 L 96.5 L Carbon Dioxide 17 L 16 L BUN Glucose 257 H 261 H POC Glucose 235 H Hemoglobin A1c Phosphorus 08/15/16 08/15/16 08/15/16 03:49 03:49 03:58 Sodium 135 L 135 L Chloride 95.3 L 94.9 L Carbon Dioxide 17 L 17 L BUN Glucose 256 H 254 H POC Glucose 235 H Hemoglobin A1c Phosphorus 08/15/16 08/15/16 08/15/16 05:13 06:20 07:10 Sodium Chloride Carbon Dioxide BUN Glucose POC Glucose 205 H 195 H 170 H Hemoglobin A1c Phosphorus 08/15/16 08/15/16 08/15/16 08:20 08:49 09:49 Sodium Chloride Carbon Dioxide BUN Glucose 158 H POC Glucose 171 H 167 H Hemoglobin A1c Phosphorus 08/15/16 08/15/16 08/15/16 11:02 12:11 13:15 Sodium 133 L D Chloride 95.9 L Carbon Dioxide 18 L BUN Glucose 215 H POC Glucose 237 H 193 H Hemoglobin A1c Phosphorus 08/15/16 08/15/16 08/15/16 14:42 16:26 18:53 Sodium Chloride Carbon Dioxide BUN Glucose POC Glucose 212 H 203 H 145 H Hemoglobin A1c Phosphorus 08/15/16 08/15/16 08/15/16 20:17 21:14 21:40 Sodium 135 L Chloride 96.3 L Carbon Dioxide BUN 8 L Glucose 180 H POC Glucose 162 H 151 H Hemoglobin A1c Phosphorus 08/15/16 08/15/16 08/15/16 21:54 22:54 23:54 Sodium Chloride Carbon Dioxide BUN Glucose POC Glucose 186 H 166 H 150 H Hemoglobin A1c Phosphorus 08/16/16 08/16/16 08/16/16 01:07 02:11 03:03 Sodium Chloride Carbon Dioxide BUN Glucose POC Glucose 162 H 150 H 137 H Hemoglobin A1c Phosphorus 08/16/16 08/16/16 08/16/16 04:10 05:14 05:58 Sodium 131 L Chloride 95.9 L Carbon Dioxide BUN 7 L Glucose 137 H POC Glucose 154 H 135 H Hemoglobin A1c Phosphorus 08/16/16 08/16/16 06:06 07:58 Sodium Chloride Carbon Dioxide BUN Glucose POC Glucose 138 H 146 H Hemoglobin A1c Phosphorus
[2016-08-16] MEDS: PROTONIX PO SCH (09:42)
[2016-08-16] MEDS: HEPARIN SUB-Q SCH ×2 (09:42→22:47)
[2016-08-16] MEDS: ZESTRIL PO SCH (09:43)
[2016-08-16] MEDS: HCTZ PO SCH (09:43)
[2016-08-16] MEDS: NOVOLOG SUB-Q SCH ×3 (11:27→22:45)
[2016-08-16] MEDS ORDERED: XYLOCAINE 1% 20 mL ONE (12:10)
--- NOTE | 2016-08-16 14:21 | Admit Criteria Form ---
Admission Criteria Documentation: DIABETES Clinical Indications for Admission to Inpatient Care (Place 'X' for any and all applicable criteria): Admission is indicated by presence of ALL (if I & II) or ANY ONE (if III or IV) of the following (1)(2)(3)(4): [X]I. Diabetes is uncontrolled as indicated by ANY ONE of the following: [X ]a) Diabetic ketoacidosis as indicated by ALL of the following (8): [ X]i) Hyperglycemia (eg, plasma glucose greater than 200 mg /dL (11.1 mmol/L)) [ X]ii) Acidosis (eg, arterial pH less than 7.30, serum bicarbonate level less than 15 mEq/L (mmol/L)) [ X]iii) Moderate ketonuria or ketonemia [ ]b) Hyperglycemic hyperosmolar state as indicated by ALL of the following(9)(10): [ ]i) Neurologic dysfunction (eg, stupor, coma, hemiparesis , seizure)(13) [ ]ii) Plasma glucose greater than 600 mg/dL (33.3 mmol/L) [ ]iii) Serum osmolality greater than 320 mOsm/kg (mmol/kg) [ X]c) Severe signs or symptoms secondary to hyperglycemia indicated by ANY ONE of the following: [ ]i) Altered mental status(10) [ ]ii) Significant hypovolemia or dehydration [ ]iii) Intractable nausea or vomiting [ ]iv) Unexplained fever or severe infection [X ]v) Severe electrolyte abnormality (eg, hypokalemia, hyperkalemia, hypernatremia) [X ]II. Management at other levels of care (Also use Diabetes: Observation Care as appropriate) is not feasible because of ANY ONE of the following: [ ]a) Condition was not adequately corrected with treatment at other levels of care. [X ]b) Treatment at other levels of care is not appropriate because of condition severity (eg, hyperosmolar coma). [ ]III. Contraindications and/or Inappropriate clinical situations for Observational Care in patients with Diabetes, when ANY ONE of the following is required: [ ]a) Patient require specific diagnostic workup or therapeutic intervention 22 [ ]b) Patient with abnormal vital signs or altered mental status 23 [ ]IV. General contraindications and/or Inappropriate clinical situations for Observational Care in patients with Diabetes, when ANY ONE of the following is required: [ ]a) Prediction of prolongation of LOS based on ANY ONE of the following may be considered as a contraindication for observational care 2, 3, 4, 5, 6, 7, 8, 9, 10, 11 [ ]i) Age > 65 yrs. [ ]ii) Patient arriving by ambulance [ ]iii) Patient with high acuity [ ]iv) Patient requiring vital sign monitoring [ ]v) Patient on IV medication [ ]b) Systolic blood pressures 180mmHg 3,12 [ ]c) Patient with altered mental status including delirium and other alteration of consciousness, (3) [ ]d) Patient whose discharge disposition will be to a [facility] home or rehabilitation home should not be managed in Emergency Department Observation Unit. CMS rule requires 3 days hospital stay before such placement.3,13 [ ]e) Patient with failure to thrive due to broad array of etiologies 3,16,17 [ ]f) Inability to ambulate 3,14 Extended stay beyond goal length of stay may be needed for(3)(20): [ ]a) Treatment of precipitating causes [ ]b) Development of hypoglycemia [ ]c) Complications of treatment [ ]d) Complications of decompensated diabetes (eg, acute gastric dilatation, persistent metabolic or neurologic derangement) [ ]e) Active Comorbidities [ ]f) Older patients( 65 years or older) The original [email or web address] content created by [employer] has been revised. The portions of the content which have been revised are identified through the use of italic text or in bold,and [facility] has neither reviewed nor approved the modified material. All other unmodified content is copyright [facility]. Please see references footnoted in the original [email or web address] edition 2016 Admission Criteria Met: Yes
[2016-08-16] MEDS: ZOCOR PO SCH (22:47)
[2016-08-17 05:53] LABS: Anion Gap 19 mmol/L; Blood Urea Nitrogen 9 mg/dL (9-20); Calcium 8.9 mg/dL (8.4-10.2); Carbon Dioxide 24 mmol/L (22-30); Chloride 97.2 mmol/L (98-107); Glucose 288 mg/dL (75-100); Potassium 3.7 mmol/L (3.6-5.0); Sodium 136 mmol/L (137-145)
[2016-08-17] MEDS: NOVOLOG SUB-Q SCH ×2 (08:09→13:01)
[2016-08-17 08:45] VITALS: BP 133/100
[2016-08-17] MEDS: NACL 0.9% 1000 ML 1,000 ML IV SCH (09:23)
[2016-08-17] MEDS: ZESTRIL PO SCH (10:28)
[2016-08-17] MEDS: PROTONIX PO SCH (10:29)
[2016-08-17] MEDS: HCTZ PO SCH (10:29)
[2016-08-17] MEDS: HEPARIN SUB-Q SCH (10:30)
--- NOTE | 2016-08-17 12:14 | Discharge Summary ---
Providers - Providers Date of Admission: 08/14/16 22:54 Date of discharge: 08/17/16 Attending physician: EILEEN GALEAS Primary care physician: PATENT SEARCHER Hospitalization Reason for admission: DKA Condition: Good Hospital course: 49-year-old moderately obese -[place] male admitted for DKA. He was admitted to ICU on insulin drip, stabilized and transferred to the floor next day His blood sugars have been around 150-300. He is fully alert and oriented and wants to go home. He denies any problems offers no specific complaints. He feels good. He states his blurring has resolved. I had a long discussion with the patient regarding the importance of monitoring and controlling his diabetes. Discussed all his lab results. Discussed the importance of following with primary care physician regularly. He is medically stable and cleared for discharge. I discussed the medications he will be on and that metformin by itself is not enough. Counseled regarding smoking cessation Final diagnosis DKA Uncontrolled type 2 diabetes Hypertension Dyslipidemia Tobacco abuse Disposition: DISCHARGED TO HOME OR SELFCARE Time spent for discharge: 35 min Core Measure Documentation - Palliative Care Palliative Care/ Comfort Measures: Not Applicable - Core Measures Any of the following diagnoses?: none Exam - Constitutional Vitals: Temp Pulse Resp BP Pulse Ox 98.4 F 85 19 133/100 98 08/17/16 07:00 08/17/16 10:28 08/17/16 07:00 08/17/16 10:28 08/17/16 07:00 General appearance: Present: no acute distress, well-nourished, obese - EENT Eyes: Present: PERRL, EOM intact ENT: hearing intact, clear oral mucosa, no thrush - Neck Neck: Present: supple, normal ROM - Respiratory Respiratory effort: normal Respiratory: bilateral: CTA - Cardiovascular Rhythm: regular Heart Sounds: Present: S1 & S2 - Extremities Extremities: No edema Peripheral Pulses: within normal limits - Abdominal General gastrointestinal: Present: soft, non-tender, non-distended. Absent: hepatomegaly, splenomegaly Male genitourinary: Present: deferred - Rectal Rectal Exam: deferred - Integumentary Integumentary: Present: clear - Musculoskeletal Musculoskeletal: strength equal bilaterally - Psychiatric Psychiatric: appropriate mood/affect, intact judgment & insight - Neurologic Neurologic: no focal deficits, moves all extremities Plan Activity: no restrictions, advance as tolerated Diet: low fat, low cholesterol, low salt, diabetic Special Instructions: record blood sugar diary, smoking cessation, other ( scheduled for outpatient diabetic classes) Follow up with: PRIMARY CARE,MD [Primary Care Provider] - 7 Days Prescriptions: glipiZIDE [Glucotrol] 5 mg PO QDAY #30 tablet Hydrochlorothiazide [HCTZ] 12.5 mg PO QDAY #30 capsule Insulin NPH/Regular [NovoLIN 70/30] 10 unit SUB-Q BIDDIAB #10 ml Lisinopril [Zestril TAB] 20 mg PO QDAY #30 tablet Metformin HCl [Glucophage] 1,000 mg PO Q12HR #60 tablet Simvastatin [Zocor TAB] 20 mg PO QHS #30 tablet
== END 2016-08-17 16:26 | disposition home or self-care (01) | DRG 637 ==
LOC: ED 15:26 → CC1 22:54 → 3A 08-16 17:06
PROVIDERS: ADMIT Internal Medicine; ATTEND Internal Medicine
DX: E13.10 Other specified diabetes mellitus with ketoacidosis without coma (principal); N17.0 Acute kidney failure with tubular necrosis; E87.1 Hypo-osmolality and hyponatremia; I10 Essential (primary) hypertension; E78.5 Hyperlipidemia, unspecified; F17.200 Nicotine dependence, unspecified, uncomplicated; F12.10 Cannabis abuse, uncomplicated; E87.5 Hyperkalemia; R63.1 Polydipsia; R35.8 Other polyuria; H53.8 Other visual disturbances; E83.52 Hypercalcemia; E86.0 Dehydration; E66.9 Obesity, unspecified; Z68.39 Body mass index [BMI] 39.0-39.9, adult; Z71.6 Tobacco abuse counseling; Z82.49 Family history of ischemic heart disease and other diseases of the circulatory system; Z83.3 Family history of diabetes mellitus
CPT/HCPCS: 36415; 80048; 81001; 82805; 82962; 83036; 83735; 84100; 85025; 96360; 96361; 99406; J1644; J1815; J2765; J7030